=== PATIENT | female | born 1930 | race Caucasian/White ===

== ENCOUNTER → 2020-06-06 | Outpatient (CLI) | payer OTHER ==
[~2020-06-06] MED LIST: ALPRAZOLAM PO; ASPIRIN EC81 M1 PO; KEFLEX250 MG PO; MULTI VITAMIN PO; PACERONE 200 M200 M1 PO; TOPROL XL25 MG PO
== END ==
LOC: SJCVC 14:34
PROVIDERS: ATTEND Internal Medicine Cardiovascular Disease
DX: Z45.018 Encounter for adjustment and management of other part of cardiac pacemaker (principal); I48.0 Paroxysmal atrial fibrillation; I49.5 Sick sinus syndrome